=== PATIENT | male | born 1965 | race Caucasian/White ===

== ENCOUNTER 2025-09-04 10:45 | Emergency (ER) | payer OTHER ==
[~2025-09-04] VITALS: Ht 180.3 cm; Wt 95.3 kg
[2025-09-04 10:54] VITALS: BP 121/66; TEMP 98.4
[2025-09-04 11:13] VITALS: O2SAT 96
== END 2025-09-04 11:13 | disposition home or self-care (01) ==
LOC: ER 10:45
DX: R18.8 Other ascites (principal); K74.60 Unspecified cirrhosis of liver